=== PATIENT | male | born 1975 | race Caucasian/White ===

== ENCOUNTER 2018-07-13 10:36 | Emergency (ER) | payer OTHER ==
[2018-07-13 10:55] VITALS: BP 121/82
[2018-07-13] MEDS ORDERED: Tetan/Diph/Pertus SYR(Tdap)* 0.5 ML SYR(BOOSTRIX) use SYR IM ONE (10:59)
--- NOTE | 2018-07-16 16:20 | UC ---
Laceration HPI - HPI Summary HPI Summary: 42-year-old male who sustained a superficial laceration to the palm of his right hand from a metal can last evening. - History Of Current Complaint Chief Complaint: UCLaceration Stated Complaint: RIGHT HAND LACERATION Time Seen by Provider: 07/13/18 10:43 Hx Obtained From: Patient Laceration Location: Hand Mechanism Of Injury: Sharp Trauma - Cut by the edge of a can. Onset/Duration: Sudden Onset Severity: Mild Pain Intensity: 0 Pain Scale Used: 0-10 Numeric Aggravating Factors: Movement - Patient states it tends to bleed a little more as the day has progressed since when he came in to have it seen. - Allergies/Home Medications Allergies/Adverse Reactions: Allergies Allergy/AdvReac Type Severity Reaction Status Date / Time No Known Allergies Allergy Verified 07/13/18 10:50 Home Medications: Home Medications Omeprazole CAP (NF) [Prilosec CAP* 20 MG] 20 mg PO DAILY 07/13/18 [History Confirmed 07/13/18] PMH/Surg Hx/FS Hx/Imm Hx Previously Healthy: Yes - Surgical History Surgical History: None - Social History Alcohol Use: Occasionally Substance Use Type: None Smoking Status (MU): Never Smoked Tobacco - Immunization History Most Recent Tetanus Shot: unknown Review of Systems All Other Systems Reviewed And Are Negative: Yes Skin: Positive: Other - 2.0 cm laceration to the palm of his right hand. Motor: Positive: Negative Neurovascular: Positive: Negative Musculoskeletal: Positive: Negative Neurological: Positive: Negative Is Patient Immunocompromised?: No Physical Exam Triage Information Reviewed: Yes Appearance: Well-Appearing, No Pain Distress, Well-Nourished Vital Signs: Initial Vital Signs Temp 99 F 07/13/18 10:52 Pulse 69 07/13/18 10:52 Resp 15 07/13/18 10:52 BP 121/82 07/13/18 10:52 Pulse Ox 98 07/13/18 10:52 Vital Signs Reviewed: Yes Musculoskeletal Exam: Normal - Peripheral pulses neuro sensation capillary refill, full range of motion with good flexion and extension of his fingers against resistance. There is a 2.0 cm laceration which actually comes together quite nicely area bleeding is controlled. Neurological Exam: Normal Psychological Exam: Normal Laceration Course/Dx - Course/Dx Course Of Treatment: Patient sustained a laceration to his right hand last evening. It's only the superficial skin thickness and does not appear to be infected it's very clean. It does gape mildly however is not down into the subcutaneous tissue. The patient was given the option of sutures to bring that skin edge together or just to do a bulky dressing and he preferred just to have the bulky dressing. Bacitracin dressing was applied and he is to change that daily watch for signs of infection. - Diagnosis Provider Diagnosis: Laceration of hand Discharge - Sign-Out/Discharge Documenting (check all that apply): Patient Departure All imaging exams completed and their final reports reviewed: No Studies - Discharge Plan Condition: Good Disposition: HOME Patient Education Materials: Laceration (DC) Referrals: [facility] [Outside] No Primary Care Phys,NOPCP [Primary Care Provider] - Additional Instructions: Keep the bulky dressing on for 24 hours and then may apply a Band-Aid after that. You were given a Tdap tetanus immunization which is good for each 10 years. Watch for signs of infection such as hot, red, tender, pus drainage, red streaks up your hand and arm. - Billing Disposition and Condition Condition: GOOD Disposition: Home - Attestation Statements Provider Attestation: I was available for consult. This patient was seen by the ALYSE. The patient was not presented to, seen by, or examined by me. -Sumeet
== END 2018-07-13 11:20 | disposition home or self-care (01) ==
LOC: UCCORT 10:36
DX: S61.411A Laceration without foreign body of right hand, initial encounter (principal); W26.8XXA Contact with other sharp object(s), not elsewhere classified, initial encounter; Y92.9 Unspecified place or not applicable; Z23 Encounter for immunization
CPT/HCPCS: 90715; 99202; G0463

== ENCOUNTER 2018-10-08 11:39 | Emergency (ER) | payer OTHER ==
[2018-10-08 12:46] VITALS: BP 146/93
--- NOTE | 2018-10-08 13:05 | UC ---
Lower Extremity/Ankle HPI - HPI Summary HPI Summary: 42 year old male with knee pain . c/o R knee pain, lateral aspect for the past 2 weeks. Pt states he was walking down a hill and his tweaked his R knee. It was swollen for a day and then improved. He states that whenever he kneels, he has burning pain in the R knee that is not improving . movement worsens sx and rest improves sx . [ End ] - History of Current Complaint Chief Complaint: UCLowerExtremity Stated Complaint: RIGHT KNEE PAIN Time Seen by Provider: 10/08/18 12:57 Onset/Duration: Sudden Onset Pain Intensity: 8 Able to Bear Weight: Yes - Allergies/Home Medications Allergies/Adverse Reactions: Allergies Allergy/AdvReac Type Severity Reaction Status Date / Time No Known Allergies Allergy Verified 10/08/18 12:46 PMH/Surg Hx/FS Hx/Imm Hx Previously Healthy: Yes - Surgical History Surgical History: Yes Surgery Procedure, Year, and Place: hernia - Social History Occupation: Employed Full-time Alcohol Use: Occasionally Substance Use Type: None Smoking Status (MU): Never Smoked Tobacco - Immunization History Most Recent Tetanus Shot: unknown Review of Systems All Other Systems Reviewed And Are Negative: Yes Musculoskeletal: Positive: Arthralgia, Decreased ROM Physical Exam Triage Information Reviewed: Yes Appearance: Well-Appearing, No Pain Distress, Well-Nourished Vital Signs: Initial Vital Signs Temp 98.3 F 10/08/18 12:42 Pulse 74 10/08/18 12:42 Resp 16 10/08/18 12:42 BP 146/93 10/08/18 12:42 Pulse Ox 100 10/08/18 12:42 Vital Signs Reviewed: Yes Eye Exam: Normal Neck: Positive: 1 Respiratory Exam: Normal Cardiovascular Exam: Normal Musculoskeletal: Positive: Strength Intact, ROM Limited @, Other: - right lateral joint line with moderate tenderness to palpation, neg lachmans, no effusion. normal popliteal fossa. strength 5/5 and sensation intact. Neurological Exam: Normal Psychological Exam: Normal Skin Exam: Normal Diagnostics - Radiology negative for fx Radiology Interpretation Completed By: Radiologist Lower Extremity Course/Dx - Course Course Of Treatment: likely sprain / mild tear of LCL or meniscus . Refer to Ortho at this time OOW note give. RTO if any concerns. - Differential Dx/Diagnosis Differential Diagnosis/HQI/PQRI: Sprain, Strain, Tendonitis Provider Diagnosis: Right knee pain, Elevated blood pressure reading Discharge - Sign-Out/Discharge Documenting (check all that apply): Patient Departure All imaging exams completed and their final reports reviewed: Yes - Discharge Plan Condition: Good Disposition: HOME Prescriptions: Diclofenac 1% GEL (NF) [Voltaren 1% GEL (NF)] 1 applic TOPICAL BID PRN #1 tube PRN Reason: Pain Ibuprofen TAB* [Motrin TAB* 800 MG] 800 mg PO Q6H PRN #30 tab PRN Reason: Pain Patient Education Materials: Knee Pain (ED) Forms: *Work Release Referrals: Fer Oates MD [Medical Doctor] - 1 Day (Ortho referral ) No Primary Care Phys,NOPCP [Primary Care Provider] - If Needed - Billing Disposition and Condition Condition: GOOD Disposition: Home
== END 2018-10-08 13:45 | disposition home or self-care (01) ==
LOC: UCCORT 11:39
DX: M25.561 Pain in right knee (principal); R03.0 Elevated blood-pressure reading, without diagnosis of hypertension
CPT/HCPCS: 99211; G0463

== ENCOUNTER 2018-10-20 12:35 | Emergency (ER) | payer OTHER ==
--- OUTSIDE RECORDS SUMMARY | 2018-10-20 12:57 | XMS REPORT | Continuity of Care Document ---
:1975 External Reference #:[id number] Author Name Cecilio Kc Care Team Providers Name Role Phone [facility] [place] Care Team Information Planning Advisor Unavailable Patient's Choice Primary Care Physician Unavailable Payers Date Identification Numbers Payment Provider Subscriber Policy Number: [id number] Niranjan Valle Group Number: [id number] [address] PayID: [id number] [place] [address] Problems Active Problems Provider Date Cerebrovascular disease Leida Raymond M.D. Onset: 07/31/2015 Migraine without aura Leida Raymond M.D. Onset: 07/31/2015 Family History Date Family Member(s) Observation Comments Father Diabetes Father Hypertension Father Heart Disease Mother Depression Social History Type Date Description Comments Sex Unknown Marital Status Lives With Mother And Father ETOH Use Occasionally consumes alcohol Tobacco Use Start: Unknown Patient has never smoked Recreational Drug Use Denies Drug Use Allergies, Adverse Reactions, Alerts Description No Known Drug Allergies Medications Active Medications SIG Qnty Indications Ordering Provider Date Ranitidine HCL take 1 tablet by Unknown 150mg mouth twice a day Tablets History Medications Escitalopram Oxalate Unknown - 10/08/2018 10mg Tablets Aspir-81 1 by mouth every day Unknown - 10/08/[address] Vital Signs Date Vital Result Comment 10/09/2018 1:18pm Height 70 inches 5'10" Weight 220.00 lb Heart Rate 84 /min BP Systolic Sitting 112 mmHg BP Diastolic Sitting 72 mmHg Respiratory Rate 14 /min Body Temperature 99.8 F Pain Level 8 BMI (Body Mass Index) 31.6 kg/m2 07/31/2015 10:26am Height 70 inches 5'10" Weight 230.00 lb Heart Rate 72 /min BP Systolic Sitting 126 mmHg BP Diastolic Sitting 92 mmHg Respiratory Rate 16 /min BMI (Body Mass Index) 33.0 kg/m2 Procedures Date Code Description Status 10/09/2018 27837 Inject/Drain Joint/Bursa Major W/O US Completed Encounters Type Date Location Provider Dx Diagnosis Office Visit 10/09/2018 Orthopedic Fer Oates, M76.32 Iliotibial band 1:15p [facility] [place] syndrome, left leg [place] 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
[2018-10-20 13:01] VITALS: BP 130/81
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
== END 2018-10-20 13:35 | disposition home or self-care (01) ==
LOC: UCCORT 12:35
DX: S20.211A Contusion of right front wall of thorax, initial encounter (principal); W19.XXXA Unspecified fall, initial encounter; Y92.814 Boat as the place of occurrence of the external cause
CPT/HCPCS: 99211; G0463

== ENCOUNTER 2019-03-19 20:03 | Emergency (ER) | payer OTHER ==
[2019-03-19 20:33] VITALS: BP 143/89
[2019-03-19] MEDS ORDERED: Tetan/Diph/Pertus SYR(Tdap)* 0.5 ML SYR(BOOSTRIX) use SYR contains LATEX IM ONE (21:01)
[2019-03-19] MEDS ORDERED: Ibuprofen TAB* 600 MG PO ONE (21:01)
[2019-03-19] MEDS ORDERED: Amoxicillin/Clavulanate TAB* 875 MG PO ONE ×2 (21:03→21:04)
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
[2019-03-20 14:05] LABS: HIV 4th Generation Nonreactive (Nonreactive)
[2019-03-20 23:31] LABS: Hepatitis B Surface Antigen Nonreactive (Nonreactive)
[2019-03-20 23:48] LABS: Hepatitis B Surface Ab Not Immune (Immune); Hepatitis C Antibody Negative (Negative)
== END 2019-03-19 21:44 | disposition home or self-care (01) ==
LOC: UCCORT 20:03
DX: S80.872A Other superficial bite, left lower leg, initial encounter (principal); W50.3XXA Accidental bite by another person, initial encounter; Y92.9 Unspecified place or not applicable
CPT/HCPCS: 36415; 86706; 86803; 87340; 87389; 90471; 90715; 99213; A9270-GY; G0463

== ENCOUNTER 2019-05-07 08:20 | Emergency (ER) | payer OTHER ==
[2019-05-07 08:42] VITALS: BP 128/85
--- NOTE | 2019-05-07 09:46 | UC ---
Respiratory Complaint HPI - HPI Summary HPI Summary: 5 day history of headache, malaise, decreased appetite and left chest pain with deep inspiration and with coughing. Uncertain if he has had a fever. He has had pain with left arm movements. Not short of breath. Not using a cough suppressant. - History of Current Complaint Chief Complaint: UCRespiratory Stated Complaint: HEADACHE COUGH CONGESTION Time Seen by Provider: 05/07/19 09:38 Hx Obtained From: Patient Onset/Duration: Gradual Onset, Lasting Days - 5 Timing: Intermittent Episodes Severity Initially: Moderate Severity Currently: Moderate Pain Intensity: 10 Character: Cough: Nonproductive Aggravating Factors: Deep Breaths, Recumbent Position Alleviating Factors: Nothing Associated Signs And Symptoms: Positive: Chills, Pleuritic Chest Pain, Nasal Congestion. Negative: Hemoptysis, Dizziness - Risk Factors Pulmonary Embolism Risk Factors: Negative Cardiac Risk Factors: Family History Pseudomonas Risk Factors: Negative Tuberculosis Risk Factors: Negative - Allergies/Home Medications Allergies/Adverse Reactions: Allergies Allergy/AdvReac Type Severity Reaction Status Date / Time No Known Allergies Allergy Verified 05/07/19 08:34 Home Medications: Home Medications Omeprazole CAP (NF) [Prilosec CAP* 20 MG] 20 mg PO DAILY 07/13/18 [History Confirmed 05/07/19] Amoxicillin/Clavulanate TAB* [Augmentin TAB 875*] 875 mg PO BID #14 tab [Rx] Ibuprofen TAB* [Motrin TAB* 800 MG] 800 mg PO Q8H PRN #30 tab 05/07/19 [Rx] PMH/Surg Hx/FS Hx/Imm Hx GI/ History: Gastroesophageal Reflux Neurological History: Migraine - "chronic migraines" for which he uses ibupofen 800mg - Surgical History Surgical History: Yes Surgery Procedure, Year, and Place: hernia - Family History Known Family History: Positive: Cardiac Disease, Hypertension - Social History Occupation: Employed Full-time Lives: With Family Alcohol Use: Occasionally Substance Use Type: None Smoking Status (MU): Never Smoked Tobacco - Immunization History Most Recent Tetanus Shot: unknown Review of Systems All Other Systems Reviewed And Are Negative: Yes Constitutional: Positive: Fatigue Skin: Positive: Negative Eyes: Positive: Negative ENT: Positive: Sinus Congestion. Negative: Sore Throat Respiratory: Positive: Cough Cardiovascular: Positive: Chest Pain Gastrointestinal: Positive: Negative Genitourinary: Positive: Negative Motor: Positive: Negative Neurovascular: Positive: Negative Musculoskeletal: Positive: Myalgia Neurological/Mental Status: Positive: Negative Psychological: Positive: Negative Is Patient Immunocompromised?: No Physical Exam Triage Information Reviewed: Yes Appearance: Well-Appearing, Pain Distress - mild Vital Signs: Initial Vital Signs Temp 98.2 F 05/07/19 08:35 Pulse 88 05/07/19 08:35 Resp 20 05/07/19 08:35 BP 128/85 05/07/19 08:35 Pulse Ox 97 05/07/19 08:35 ENT: Positive: Pharynx normal, TMs normal Neck: Positive: Supple, Nontender, No Lymphadenopathy Respiratory: Positive: Decreased breath sounds - to left base Cardiovascular: Positive: RRR, No Murmur Abdomen Description: Positive: Nontender, No Organomegaly, Soft Bowel Sounds: Positive: Present Musculoskeletal Exam: Normal Neurological Exam: Normal Psychological Exam: Normal Skin Exam: Normal Diagnostics - Laboratory Lab Results: rapid flu negative. - Radiology No standard instances Radiology Interpretation Completed By: Radiologist - Dr. Heard's reading of CXR : no active cardiopulmonary disease. Respiratory Course/Dx - Course Course Of Treatment: augmentin for treatment of sinusitis. - Differential Dx/Diagnosis Differential Diagnosis/HQI/PQRI: Bronchitis, Laryngitis, Lower Resp Infection, Sinusitis Provider Diagnosis: Sinusitis Discharge ED - Sign-Out/Discharge Documenting (check all that apply): Patient Departure All imaging exams completed and their final reports reviewed: No Studies - Discharge Plan Condition: Stable Disposition: HOME Prescriptions: Amoxicillin/Clavulanate TAB* [Augmentin TAB 875*] 875 mg PO BID #14 tab Ibuprofen TAB* [Motrin TAB* 800 MG] 800 mg PO Q8H PRN #30 tab PRN Reason: Pain - Moderate Patient Education Materials: Sinusitis (ED) Forms: *Work Release Referrals: No Primary Care Phys,NOPCP [Primary Care Provider] - Additional Instructions: Begin augmentin for treatment of sinusitis. Use over the counter cough suppressants such as long acting dextrometnorphan ( Delsym) for relief of cough. Use ibuprofen as needed for headache and muscle aches. - Billing Disposition and Condition Condition: STABLE Disposition: Home
[2019-05-07 10:08] LABS: Influenza A Molecular Negative (Negative); Influenza B Molecular Negative (Negative)
== END 2019-05-07 10:40 | disposition home or self-care (01) ==
LOC: UCCORT 08:20
DX: J32.9 Chronic sinusitis, unspecified (principal); R07.89 Other chest pain; M79.10 Myalgia, unspecified site; K21.9 Gastro-esophageal reflux disease without esophagitis; Z79.899 Other long term (current) drug therapy
CPT/HCPCS: 71046; 99212; G0463